=== PATIENT | male | born 2000 | race Caucasian/White ===

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

== ENCOUNTER → 2019-04-15 | Outpatient (CLI) | payer OTHER ==
--- NOTE | 2019-04-16 02:30 | MR ---
EXAMINATION TYPE: MR ankle RT wo con DATE OF EXAM: 04/15/2019 COMPARISON: None HISTORY: Rt ankle pain, swelling-Twisted ankle Standard multiplanar, multisequence MRI departmental protocol Multiplanar, multisequence images of the right ankle were acquired. FINDINGS: There is a moderate ankle joint effusion. Ankle mortise is anatomic. There is soft tissue s welling over the lateral malleolus. There is subcutaneous edema. The lateral collateral ligaments hav e increased signal. The medial and lateral flexor tendons of the ankle appear intact. Achilles tendon is intact. Plantar fascia appears normal. There is no evidence of a fracture. IMPRESSION: No fracture seen. Mild to moderate ankle joint effusion. There is evidence of tear of the lateral col lateral ligament with soft tissue swelling and edema.
== END | disposition home or self-care (01) ==
LOC: RADMRIMAIN 14:55
PROVIDERS: ATTEND Podiatrist Foot & Ankle Surgery
DX: S93.491A Sprain of other ligament of right ankle, initial encounter (principal)

== ENCOUNTER 2019-11-14 18:42 | Emergency (ER) | payer MEDICARE, OTHER ==
[2019-11-14 19:04] VITALS: BP 117/81; PULSE 114; RESP 18; TEMP 98.6
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
--- NOTE | 2019-11-14 19:38 | XR ---
EXAMINATION TYPE: XR ankle complete RT DATE OF EXAM: 11/14/2019 COMPARISON: NONE HISTORY: Pain TECHNIQUE: 3 views FINDINGS: Ankle mortise is anatomic. I see no fracture nor dislocation. Joint spaces are normal. IMPRESSION: Negative right ankle exam.
== END 2019-11-14 19:52 | disposition home or self-care (01) ==
LOC: EC 18:42
DX: S93.401A Sprain of unspecified ligament of right ankle, initial encounter (principal); F90.9 Attention-deficit hyperactivity disorder, unspecified type; Z79.899 Other long term (current) drug therapy; Z88.8 Allergy status to other drugs, medicaments and biological substances; X50.9XXA Other and unspecified overexertion or strenuous movements or postures, initial encounter
CPT/HCPCS: 99283

== ENCOUNTER 2020-01-14 12:59 | Emergency (ER) | payer MEDICARE, OTHER ==
[2020-01-14] MEDS ORDERED: diphenhydrAMINE 50 MG CAP PO STA (13:02)
--- NOTE | 2020-01-14 13:05 | ED ---
General Adult HPI - General Stated complaint: Bee Sting Time Seen by Provider: 01/14/20 13:02 Source: patient, EMS, RN notes reviewed Mode of arrival: EMS Limitations: no limitations - History of Present Illness Initial comments: This a 19-year-old male presents emergency Department chief complaint of bee sting to his left calf. This happened approximately 30-45 minutes ago. Patient has some localized pain there is a small red spot where bee sting happened. Patient has no difficulty breathing or difficulty swallowing patient has some localized pain no other complaints. Mother advised school staff to have patient evaluated because there is a family history of ALLERGIC reaction. Patient has never been stung by a bee in the past. - Related Data Home Medications Medication Instructions Recorded Confirmed lamoTRIgine [LaMICtal] 200 mg PO BID 09/11/16 04/27/18 Albuterol Inhaler (Mhu) [Ventolin 2 puff INHALATION RT-Q8H 04/27/18 04/27/18 Hfa Inhaler] Montelukast [Singulair] 10 mg PO HS 04/27/18 04/27/18 Topiramate [Topamax] 25 mg PO BID 04/27/18 04/27/18 cloZAPine [Clozaril] 150 mg PO DAILY 04/27/18 04/27/18 cloZAPine [Clozaril] 250 mg PO HS 04/27/18 04/27/18 Allergies Allergy/AdvReac Type Severity Reaction Status Date / Time amlodipine [From Norvasc] AdvReac Rapid Verified 11/14/19 19:04 Heart Rate lorazepam [From Ativan] AdvReac Increased Verified 11/14/19 19:04 Anxiety Review of Systems ROS Statement: Those systems with pertinent positive or pertinent negative responses have been documented in the HPI. ROS Other: All systems not noted in ROS Statement are negative. Past Medical History Additional Past Medical History / Comment(s): Aspergers, renal vascular HTN History of Any Multi-Drug Resistant Organisms: None Reported Past Surgical History: Cholecystectomy Past Psychological History: No Psychological Hx Reported, ADD/ADHD, Schizophrenia Past Alcohol Use History: None Reported Past Drug Use History: None Reported General Exam General appearance: alert, in no apparent distress Head exam: Present: atraumatic, normocephalic, normal inspection Eye exam: Present: normal appearance, PERRL, EOMI. Absent: scleral icterus, co njunctival injection, periorbital swelling ENT exam: Present: normal exam, normal oropharynx, mucous membranes moist Neck exam: Present: normal inspection, full ROM. Absent: tenderness, meningismus, lymphadenopathy Respiratory exam: Present: normal lung sounds bilaterally. Absent: respiratory distress, wheezes, rales, rhonchi, stridor Cardiovascular Exam: Present: regular rate, normal rhythm, normal heart sounds. Absent: systolic murmur, diastolic murmur, rubs, gallop, clicks Extremities exam: Present: other (Small red macular spot noted on the left calf) Skin exam: Present: warm, dry, intact, normal color. Absent: rash Medical Decision Making - Medical Decision Making Patient has localized minimal reaction reaction. Patient was discharged in stable condition Disposition Clinical Impression: Bee sting Disposition: HOME SELF-CARE Condition: Stable Instructions (If sedation given, give patient instructions): Insect Bite or Sting (ED) Additional Instructions: Please return to the Emergency Department if symptoms worsen or any other co ncerns. Is patient prescribed a controlled substance at d/c from ED?: No Referrals: Nigel Lockett MD [Primary Care Provider] - 1-2 days Time of Disposition: 13:05
[2020-01-14 13:06] VITALS: BP 147/93; PULSE 116; RESP 20; TEMP 98.5
== END 2020-01-14 13:19 | disposition home or self-care (01) ==
LOC: EC 12:59
DX: T63.441A Toxic effect of venom of bees, accidental (unintentional), initial encounter (principal); I10 Essential (primary) hypertension; Z79.899 Other long term (current) drug therapy; Z79.51 Long term (current) use of inhaled steroids; Z88.8 Allergy status to other drugs, medicaments and biological substances
CPT/HCPCS: 99283

== ENCOUNTER 2020-11-29 21:55 | Emergency (ER) | payer MEDICARE, OTHER ==
[2020-11-29] MEDS ORDERED: SODIUM CHLORIDE 0.9% 1,000 ML IV STA ×2 (22:33→23:05)
[2020-11-29 22:50] LABS: Basophils # (A) 0.1 k/uL (0-0.2); Basophils % (A) 1 %; Eosinophils # (A) 0.1 k/uL (0-0.7); Eosinophils % (A) 1 %; HCT 45.4 % (39.0-53.0); HGB 15.5 gm/dL (13.0-17.5); Lymphocytes # (A) 2.5 k/uL (1.0-4.8); Lymphocytes % (A) 20 %; MCH 29.9 pg (25.0-35.0); MCHC 34.1 g/dL (31.0-37.0); MCV 87.6 fL (80.0-100.0); Mean Platelet Volume 9.2; Monocytes # (A) 0.7 k/uL (0-1.0); Monocytes % (A) 5 %; Neutrophils # (A) 9.4 k/uL (1.3-7.7); Neutrophils % (A) 73 %; Platelet Count 189 k/uL (150-450); RBC 5.18 m/uL (4.30-5.90); WBC 12.9 k/uL (3.8-10.6)
[2020-11-29 23:05] LABS: ALT 18 U/L (4-49); AST 21 U/L (17-59); African American GFR (CKD) >90 (>60 ml/min/1.73 sqM); Albumin 4.3 g/dL (3.5-5.0); Alkaline Phosphatase 85 U/L (38-126); Anion Gap 10 mmol/L; Blood Urea Nitrogen 15 mg/dL (9-20); Calcium 9.6 mg/dL (8.4-10.2); Carbon Dioxide 24 mmol/L (22-30); Chloride 106 mmol/L (98-107); Creatine Kinase 83 U/L (55-170); Glucose 145 mg/dL (74-99); Lipase 26 U/L (23-300); Non-African American GFR(CKD) >90 (>60 ml/min/1.73 sqM); Potassium 3.6 mmol/L (3.5-5.1); Sodium 140 mmol/L (137-145); Total Bilirubin 0.2 mg/dL (0.2-1.3)
[2020-11-29] MEDS ORDERED: KETOROLAC 15 MG/ML 1 ML VIAL IVP STA (23:05)
[2020-11-29] MEDS ORDERED: ONDANSETRON 4 MG/2 ML VIAL IVP STA (23:05)
[2020-11-29] MEDS ORDERED: MAG HYDROX/AL HYDROX/SIMETH 30 ML, HYOSCYAMINE ELIXIR 10 ML PO STA ×2 (23:05)
--- NOTE | 2020-11-29 23:30 | ED ---
Chest Pain HPI - General Chief Complaint: Chest Pain Stated Complaint: Chest pain Time Seen by Provider: 11/29/20 22:32 Source: patient, RN notes reviewed, old records reviewed Mode of arrival: wheelchair Limitations: no limitations - History of Present Illness Initial Comments: This is a 20-year-old male DF for evaluation patient Dese for evaluation regards to chest pain anterior chest wall pain. Tenderness to palpation in his chest arm and abdomen. Patient is a mildly poor story and presenting with family for evaluation regards to this chest pain. Second car with history of high blood pressure. Otherwise no recent change in medications no acute trauma or fevers. She was at the [place] today some maybe a little dehydrated and was riding a ride that did spinning around in circles, uses a variety continue to ride it over and over again. MD Complaint: chest pain -: hour(s) Onset: during rest Pain Location: substernal Pain Radiation: none Severity: mild Severity scale (1-10): 2 Quality: aching, sharp Consistency: intermittent Improves With: nothing Worsens With: inspiration Context: trauma/injury Anginal Symptoms: diaphoresis Treatments Prior to Arrival: none - Related Data Home Medications Medication Instructions Recorded Confirmed lamoTRIgine [LaMICtal] 200 mg PO BID 09/11/16 04/27/18 Albuterol Inhaler (Mhu) [Ventolin 2 puff INHALATION RT-Q8H 04/27/18 04/27/18 Hfa Inhaler] Montelukast [Singulair] 10 mg PO HS 04/27/18 04/27/18 Topiramate [Topamax] 25 mg PO BID 04/27/18 04/27/18 cloZAPine [Clozaril] 150 mg PO DAILY 04/27/18 04/27/18 cloZAPine [Clozaril] 250 mg PO HS 04/27/18 04/27/18 Allergies Allergy/AdvReac Type Severity Reaction Status Date / Time amlodipine [From Norvasc] AdvReac Rapid Verified 11/29/20 22:10 Heart Rate lorazepam [From Ativan] AdvReac Increased Verified 11/29/20 22:10 Anxiety Review of Systems ROS Statement: Those systems with pertinent positive or pertinent negative responses have been documented in the HPI. ROS Other: All systems not noted in ROS Statement are negative. EKG Findings - EKG Comments: EKG Findings:: EKG shows sinus tachycardia 122. TX 150 QRS 78 QTc 444 Past Medical History Additional Past Medical History / Comment(s): Aspergers, renal vascular HTN History of Any Multi-Drug Resistant Organisms: None Reported Past Surgical History: Cholecystectomy Past Psychological History: No Psychological Hx Reported, ADD/ADHD, Schizophrenia Smoking Status: Never smoker Past Alcohol Use History: None Reported Past Drug Use History: None Reported General Exam Limitations: no limitations General appearance: alert, in no apparent distress, obese Head exam: Present: atraumatic, normocephalic, normal inspection Eye exam: Present: normal appearance, PERRL, EOMI. Absent: scleral icterus, conjunctival injection, periorbital swelling ENT exam: Present: normal exam, mucous membranes moist Neck exam: Present: normal inspection. Absent: tenderness, meningismus, lymphadenopathy Respiratory exam: Present: normal lung sounds bilaterally. Absent: respiratory distress, wheezes, rales, rhonchi, stridor Cardiovascular Exam: Present: normal rhythm, tachycardia, normal heart sounds. Absent: systolic murmur, diastolic murmur, rubs, gallop, clicks GI/Abdominal exam: Present: soft, normal bowel sounds. Absent: distended, tenderness, guarding, rebound, rigid Extremities exam: Present: normal inspection, full ROM, normal capillary refill. Absent: tenderness, pedal edema, joint swelling, calf tenderness Back exam: Present: normal inspection Neurological exam: Present: alert, oriented X3, CN II-XII intact Psychiatric exam: Present: normal affect, normal mood Skin exam: Present: warm, dry, intact, normal color. Absent: rash Course Vital Signs 11/29/20 11/30/20 22:07 00:01 Temperature 99.2 F Pulse Rate 124 H 108 H Respiratory 18 20 Rate Blood Pressure 99/42 128/76 O2 Sat by Pulse 98 97 Oximetry - Reevaluation(s) Reevaluation #1: 11/30/20 00:06 Medical records reviewed Reevaluation #2: 11/30/20 00:06 Patient has adequate current pain control Reevaluation #3: 11/30/20 00:06 Patient family informed results questions answered Reevaluation #4: 11/30/20 00:07 Studies CTA negative for acute disease Chest Pain MDM - MDM 20 male with atypical chest pain likely chest wall strain in nature. Patient has negative testing here in the emergency room and can be discharged home Disposition Clinical Impression: Atypical chest pain, Chest pain Disposition: HOME SELF-CARE Condition: Good Instructions (If sedation given, give patient instructions): Costochondritis (ED) Is patient prescribed a controlled substance at d/c from ED?: No Referrals: Zeferino Lamb MD [Primary Care Provider] - 1-2 days
--- NOTE | 2020-11-30 00:03 | CT ---
EXAMINATION TYPE: CT angio chest DATE OF EXAM: 11/29/2020 COMPARISON: None HISTORY: Chest pain CT DLP: 1007 mGycm Automated exposure control for dose reduction was used. CONTRAST: Performed with IV Contrast, patient injected with 80 mL of Isovue 370. There are 3-D post processed images. There is some mild increased interstitial density at the posterior lung bases. There is no pulmonary consolidation. There is no evidence of a pulmonary mass. There is no mediastinal adenopathy. Thoracic aorta appears normal. There is no aneurysm or dissection . There are no hilar masses. There is suboptimal contrast density in the pulmonary arteries. I see no filling defect. The thoracic spine is intact. There is no compression fracture. Sternum is intact spleen is large and measures 16 cm. Liver appears large. IMPRESSION: No evidence of pulmonary embolism. Hepatosplenomegaly.
[2020-11-30 00:08] LABS: D-Dimer 0.18 mg/L FEU (<0.60); Partial Thromboplastin Time 25.2 sec (22.0-30.0); Prothrombin Time 10.3 sec (9.0-12.0)
[2020-11-30 00:46] VITALS: BP 126/62; PULSE 101; RESP 18; TEMP 98.5
== END 2020-11-30 00:51 | disposition home or self-care (01) ==
LOC: EC 21:55 → SUPCPDRO 21:55 → EC 11-30 00:51
DX: R07.89 Other chest pain (principal); I10 Essential (primary) hypertension; E66.9 Obesity, unspecified; F20.9 Schizophrenia, unspecified; Z79.51 Long term (current) use of inhaled steroids; Z79.899 Other long term (current) drug therapy; Z88.8 Allergy status to other drugs, medicaments and biological substances; Z68.41 Body mass index [BMI] 40.0-44.9, adult
CPT/HCPCS: 36415; 93005; 85379; 83880; 80053; 82550; 83690; 83735; 84484; 85025; 85610; 85730; 71275; 96374; 96375; 99285; J2405; J1885; Q9967

== ENCOUNTER 2021-01-06 17:15 | Emergency (ER) | payer MEDICARE, OTHER ==
[2021-01-06 17:34] VITALS: TEMP 98
[2021-01-06 18:17] LABS: Basophils # (A) 0.1 k/uL (0-0.2); Basophils % (A) 1 %; Eosinophils % (A) 0 %; HCT 44.8 % (39.0-53.0); HGB 14.9 gm/dL (13.0-17.5); Lymphocytes # (A) 2.2 k/uL (1.0-4.8); Lymphocytes % (A) 25 %; MCH 29.4 pg (25.0-35.0); MCHC 33.2 g/dL (31.0-37.0); MCV 88.7 fL (80.0-100.0); Mean Platelet Volume 9.6; Monocytes # (A) 0.3 k/uL (0-1.0); Monocytes % (A) 3 %; Neutrophils # (A) 6.2 k/uL (1.3-7.7); Neutrophils % (A) 70 %; Platelet Count 172 k/uL (150-450); RBC 5.06 m/uL (4.30-5.90); RDW 13.8 % (11.5-15.5); WBC 8.8 k/uL (3.8-10.6)
[2021-01-06 18:27] LABS: ALT 19 U/L (4-49); AST 25 U/L (17-59); African American GFR (CKD) >90 (>60 ml/min/1.73 sqM); Albumin 3.9 g/dL (3.5-5.0); Alkaline Phosphatase 76 U/L (38-126); Amylase <30 U/L (30-110); Anion Gap 12 mmol/L; Blood Urea Nitrogen 15 mg/dL (9-20); Calcium 9.6 mg/dL (8.4-10.2); Carbon Dioxide 20 mmol/L (22-30); Chloride 106 mmol/L (98-107); Glucose 195 mg/dL (74-99); Lipase 27 U/L (23-300); Non-African American GFR(CKD) >90 (>60 ml/min/1.73 sqM); Potassium 3.4 mmol/L (3.5-5.1); Sodium 138 mmol/L (137-145); Total Bilirubin 0.2 mg/dL (0.2-1.3); Total Protein 6.4 g/dL (6.3-8.2)
--- NOTE | 2021-01-06 18:55 | XR ---
EXAMINATION TYPE: XR KUB DATE OF EXAM: 01/06/2021 COMPARISON: NONE HISTORY: 20 years Male. STUDY INDICATION GIVEN: abdominal pain . TECHNIQUE: Radiographs of the abdomen FINDINGS AND IMPRESSION: Moderate to large amount of stool seen in the colon. The bowel gas pattern is nonobstructive. No abno rmal calcifications or evidence of organomegaly. No acute osseous abnormality. Bibasilar subsegmental atelectasis, minimal.
[2021-01-06 18:57] LABS: Appearance,Urine Clear (Clear); Bilirubin,Urine Negative (Negative); Blood,Urine Negative (Negative); Color,Urine Yellow; Glucose,Urine (UA) Negative (Negative); Ketones,Urine Negative (Negative); Leukocyte Esterase,Urine Negative (Negative); Nitrite,Urine Negative (Negative); Protein,Urine Trace (Negative); Specific Gravity,Urine 1.021 (1.001-1.035); Urobilinogen,Urine <2.0 mg/dL (<2.0)
[2021-01-06] MEDS ORDERED: KETOROLAC 15 MG/ML 1 ML VIAL IVP STA (19:10)
[2021-01-06 20:11] VITALS: RESP 16
--- NOTE | 2021-01-06 20:27 | CT ---
EXAMINATION TYPE: CT abdomen pelvis w con DATE OF EXAM: 01/06/2021 COMPARISON: NONE HISTORY: 20-year-old male right-sided abdominal pain side abdomen pain TECHNIQUE: Contiguous axial scanning of the abdomen and pelvis following administration of 100 ml Iso peter 300 IV contrast. Delayed images through the kidneys and coronal/sagittal reconstructions perform ed. CT DLP: 2589.2 mGycm Automated exposure control for dose reduction was used. FINDINGS: Heart normal size without pericardial effusion. Lung bases clear without pleural effusion. Liver mildly enlarged measuring 19.6 cm. No focal liver lesion or biliary ductal dilatation. Portal v enous system is patent. Gallbladder, adrenal glands, kidneys, and pancreas within normal limits. Spleen enlarged at 15.7 cm. No dilated small bowel, free fluid, or free air. A few scattered nonenlarged and borderline sized mes enteric lymph nodes measuring up to 8 mm, for example, coronal image 51. Probably reactive/post infla mmatory. Normal appendix. Mild stool burden. No pericolonic inflammatory change. Mild/moderate circumferential bladder wall thickening may in part relate to nondistention. No abnorma l fluid collection in the pelvis or pelvic lymphadenopathy. Bones: No osseous destructive process. IMPRESSION: 1. MILD HEPATOSPLENOMEGALY (LIVER 19.6 CM AND SPLEEN 15.7 CM). 2. NORMAL APPENDIX. 3. SPHI-HZ-EIRODNGH CIRCUMFERENTIAL BLADDER WALL THICKENING. CORRELATE TO EXCLUDE CYSTITIS.
--- NOTE | 2021-01-06 20:38 | ED ---
Abdominal Pain HPI - General Chief Complaint: Abdominal Pain Stated Complaint: Abdominal Pain Time Seen by Provider: 01/06/21 18:17 Source: patient, family Mode of arrival: wheelchair Limitations: no limitations - History of Present Illness Initial Comments: 20-year-old male presents emergency Department with reported right-sided flank pain. Pain started a couple days ago and has been progressively getting worse. Denies any provocative factors. No nausea or vomiting. No fevers or chills. Denies any changes in his bowel or bladder habits. Patient did have a bowel movement this morning. No history of similar pain in the past. No history of k idney stones. No concern for sexually transmitted infections. No testicular pain. No other alleviating, precipitating or modifying factors - Related Data Home Medications Medication Instructions Recorded Confirmed lamoTRIgine [LaMICtal] 200 mg PO BID 09/11/16 04/27/18 Albuterol Inhaler (Mhu) [Ventolin 2 puff INHALATION RT-Q8H 04/27/18 04/27/18 Hfa Inhaler] Montelukast [Singulair] 10 mg PO HS 04/27/18 04/27/18 Topiramate [Topamax] 25 mg PO BID 04/27/18 04/27/18 cloZAPine [Clozaril] 150 mg PO DAILY 04/27/18 04/27/18 cloZAPine [Clozaril] 250 mg PO HS 04/27/18 04/27/18 Previous Rx's Medication Instructions Recorded Polyethylene Glycol 3350 [Miralax] 17 gm PO DAILY #527 gm 01/06/21 Allergies Allergy/AdvReac Type Severity Reaction Status Date / Time amlodipine [From Norvasc] AdvReac Rapid Verified 01/06/21 17:32 Heart Rate lorazepam [From Ativan] AdvReac Increased Verified 01/06/21 17:32 Anxiety Review of Systems ROS Statement: Those systems with pertinent positive or pertinent negative responses have been documented in the HPI. ROS Other: All systems not noted in ROS Statement are negative. Past Medical History Additional Past Medical History / Comment(s): Aspergers, renal vascular HTN History of Any Multi-Drug Resistant Organisms: None Reported Past Surgical History: Cholecystectomy Past Psychological History: No Psychological Hx Reported, ADD/ADHD, Schizoph torsten Smoking Status: Never smoker Past Alcohol Use History: None Reported Past Drug Use History: None Reported General Exam Limitations: no limitations General appearance: alert, in no apparent distress Head exam: Present: atraumatic, normocephalic, normal inspection Eye exam: Present: normal appearance, PERRL, EOMI. Absent: scleral icterus, conjunctival injection, periorbital swelling ENT exam: Present: normal exam, mucous membranes moist Neck exam: Present: normal inspection. Absent: tenderness, meningismus, lymphadenopathy Respiratory exam: Present: normal lung sounds bilaterally. Absent: respiratory distress, wheezes, rales, rhonchi, stridor Cardiovascular Exam: Present: regular rate, normal rhythm, normal heart sounds. Absent: systolic murmur, diastolic murmur, rubs, gallop, clicks GI/Abdominal exam: Present: soft, normal bowel sounds. Absent: distended, tenderness, guarding, rebound, rigid Extremities exam: Present: normal inspection, full ROM, normal capillary refill. Absent: tenderness, pedal edema, joint swelling, calf tenderness Back exam: Present: CVA tenderness (R) Neurological exam: Present: alert, oriented X3, CN II-XII intact Psychiatric exam: Present: normal affect, normal mood Skin exam: Present: warm, dry, intact, normal color. Absent: rash Course Vital Signs 01/06/21 01/06/21 01/06/21 17:29 19:33 20:50 Temperature 98.0 F Pulse Rate 105 H 98 96 Respiratory 19 16 16 Rate Blood Pressure 123/68 146/76 148/89 O2 Sat by Pulse 97 97 98 Oximetry Medical Decision Making - Medical Decision Making Upon arrival the patient was placed into room 4. A thorough history and physical exam was performed. IV is established. Laboratory studies were conducted. He received 50 mg of Toradol. X-ray was performed. Upon review of the laboratory studies glucose is 195. Mother is informed of this high reading and recommend that she follow up with her primary care doctor for a hemoglobin A1c. X-ray demonstrates a moderate to large amount of stool. As the patient is in significant pain we did perform a CT of abdomen and pelvis which fails to demonstrate any acute process at this time. Patient is reevaluated and feels comfortable after the pain medicine. Patient will be discharged home. I did discuss the diagnosis, differential and treatment options. Patient will be given a prescription for MiraLAX. Follow up with his primary care doctor in 2-4 days. Return to the emergency room for any new or worsening symptoms. Patient is discharged home in stable condition - Lab Data Result diagrams: 01/06/21 18:06 01/06/21 18:06 Lab Results 01/06/21 01/06/21 01/06/21 Range/Units 18:06 18:06 18:06 WBC 8.8 (3.8-10.6) k/uL RBC 5.06 (4.30-5.90) m/uL Hgb 14.9 (13.0-17.5) gm/dL Hct 44.8 (39.0-53.0) % MCV 88.7 (80.0-100.0) fL MCH 29.4 (25.0-35.0) pg MCHC 33.2 (31.0-37.0) g/dL RDW 13.8 (11.5-15.5) % Plt Count 172 (150-450) k/uL MPV 9.6 Neutrophils % 70 % Lymphocytes % 25 % Monocytes % 3 % Eosinophils % 0 % Basophils % 1 % Neutrophils # 6.2 (1.3-7.7) k/uL Lymphocytes # 2.2 (1.0-4.8) k/uL Monocytes # 0.3 (0-1.0) k/uL Eosinophils # 0.0 (0-0.7) k/uL Basophils # 0.1 (0-0.2) k/uL Sodium 138 (137-145) mmol/L Potassium 3.4 L (3.5-5.1) mmol/L Chloride 106 (98-107) mmol/L Carbon Dioxide 20 L (22-30) mmol/L Anion Gap 12 mmol/L BUN 15 (9-20) mg/dL Creatinine 0.96 (0.66-1.25) mg/dL Est GFR (CKD-EPI)AfAm >90 (>60 ml/min/1.73 sqM) Est GFR (CKD-EPI)NonAf >90 (>60 ml/min/1.73 sqM) Glucose 195 H (74-99) mg/dL Plasma Lactic Acid Dane 1.9 (0.7-2.0) mmol/L Calcium 9.6 (8.4-10.2) mg/dL Total Bilirubin 0.2 (0.2-1.3) mg/dL AST 25 (17-59) U/L ALT 19 (4-49) U/L Alkaline Phosphatase 76 (38-126) U/L Total Protein 6.4 (6.3-8.2) g/dL Albumin 3.9 (3.5-5.0) g/dL Amylase <30 L (30-110) U/L Lipase 27 (23-300) U/L Urine Color Urine Appearance (Clear) Urine pH (5.0-8.0) Ur Specific [place] (1.001-1.035) Urine Protein (Negative) Urine Glucose (UA) (Negative) Urine Ketones (Negative) Urine Blood (Negative) Urine Nitrite (Negative) Urine Bilirubin (Negative) Urine Urobilinogen (<2.0) mg/dL Ur Leukocyte Esterase (Negative) 01/06/21 Range/Units 18:34 WBC (3.8-10.6) k/uL RBC (4.30-5.90) m/uL Hgb (13.0-17.5) gm/dL Hct (39.0-53.0) % MCV (80.0-100.0) fL MCH (25.0-35.0) pg MCHC (31.0-37.0) g/dL RDW (11.5-15.5) % Plt Count (150-450) k/uL MPV Neutrophils % % Lymphocytes % % Monocytes % % Eosinophils % % Basophils % % Neutrophils # (1.3-7.7) k/uL Lymphocytes # (1.0-4.8) k/uL Monocytes # (0-1.0) k/uL Eosinophils # (0-0.7) k/uL Basophils # (0-0.2) k/uL Sodium (137-145) mmol/L Potassium (3.5-5.1) mmol/L Chloride (98-107) mmol/L Carbon Dioxide (22-30) mmol/L Anion Gap mmol/L BUN (9-20) mg/dL Creatinine (0.66-1.25) mg/dL Est GFR (CKD-EPI)AfAm (>60 ml/min/1.73 sqM) Est GFR (CKD-EPI)NonAf (>60 ml/min/1.73 sqM) Glucose (74-99) mg/dL Plasma Lactic Acid Dane (0.7-2.0) mmol/L Calcium (8.4-10.2) mg/dL Total Bilirubin (0.2-1.3) mg/dL AST (17-59) U/L ALT (4-49) U/L Alkaline Phosphatase (38-126) U/L Total Protein (6.3-8.2) g/dL Albumin (3.5-5.0) g/dL Amylase (30-110) U/L Lipase (23-300) U/L Urine Color Yellow Urine Appearance Clear (Clear) Urine pH 5.0 (5.0-8.0) Ur Specific [place] 1.021 (1.001-1.035) Urine Protein Trace H (Negative) Urine Glucose (UA) Negative (Negative) Urine Ketones Negative (Negative) Urine Blood Negative (Negative) Urine Nitrite Negative (Negative) Urine Bilirubin Negative (Negative) Urine Urobilinogen <2.0 (<2.0) mg/dL Ur Leukocyte Esterase Negative (Negative) Disposition Clinical Impression: Abdominal pain, Constipation, Hyperglycemia Disposition: HOME SELF-CARE Condition: Stable Instructions (If sedation given, give patient instructions): Abdominal Pain (ED) Additional Instructions: Please take the Miralax daily until you have smooth bowel movements. Follow up with your doctor in regards to your elevated blood sugar (195 today). They may want to do a hemoglobin a1c. Return to the ED for any new or worsening symptoms. Prescriptions: Polyethylene Glycol 3350 [Miralax] 17 gm PO DAILY #527 gm Is patient prescribed a controlled substance at d/c from ED?: No Referrals: Checo Richards MD [Primary Care Provider] - 1-2 days Time of Disposition: 20:37
[2021-01-06 21:08] VITALS: BP 148/89; PULSE 96
== END 2021-01-06 20:51 | disposition home or self-care (01) ==
LOC: EC 17:15
DX: R10.9 Unspecified abdominal pain (principal); F90.9 Attention-deficit hyperactivity disorder, unspecified type; F20.9 Schizophrenia, unspecified; Z90.49 Acquired absence of other specified parts of digestive tract
CPT/HCPCS: 99284; 96374; 36415; 80053; 82150; 83605; 83690; 85025; 81003; 74018; 74177; J1885; Q9967

== ENCOUNTER 2022-08-08 18:59 | Emergency (ER) | payer MEDICARE, OTHER ==
[2022-08-08 19:05] VITALS: RESP 18; TEMP 98.7
[2022-08-08] MEDS ORDERED: SODIUM CHLORIDE 0.9% 1,000 ML IV STA (19:16)
[2022-08-08] MEDS ORDERED: KETOROLAC 15 MG/ML 1 ML VIAL IVP STA (19:16)
--- NOTE | 2022-08-08 19:35 | ED ---
Abdominal Pain HPI - General Chief Complaint: Abdominal Pain Stated Complaint: Abd pain Time Seen by Provider: 08/08/22 19:01 Source: patient, family, RN notes reviewed Mode of arrival: ambulatory - History of Present Illness Initial Comments: This is a 21-year-old male who presents to the emergency department for right- sided mid to upper abdominal pain. Patient does live in a [place] [facility], however his mother presents with him for evaluation. States that Sunday he started to c omplain of right-sided abdominal pain, and yesterday it became so severe, that he was sent home from school. She states that he does not often complain of pain. He has also had diarrhea over the weekend, but he was given MiraLAX while experiencing the diarrhea. They do note that he has been complaining of similar pain on and off for the last couple of months, however it became the most severe yesterday. His mother took him to [facility] last night. He had a bedside ultrasound, and the physician thought that he saw his gallbladder, however his mother was told that it was removed when he was an infant. His mother adopted him when he was approximately 1 years old, and does not have the entire history. They then proceeded with a regular right upper quadrant ultrasound, and they were told that it was normal. However, they were not told whether or not he has a gallbladder. Lab work was performed as well, which the family was told was normal. Patient denies any nausea or vomiting. Denies any fevers, chills, sore throat, cough, dyspnea, chest pain, palpitati ons, nausea, vomiting, or headaches. MD Complaint: abdominal pain Radiation: RUQ - Related Data Home Medications Medication Instructions Recorded Confirmed lamoTRIgine [LaMICtal] 200 mg PO BID 09/11/16 04/27/18 Albuterol Inhaler [Ventolin Hfa 2 puff INHALATION RT-Q8H 04/27/18 04/27/18 Inhaler] Montelukast [Singulair] 10 mg PO HS 04/27/18 04/27/18 Topiramate [Topamax] 25 mg PO BID 04/27/18 04/27/18 cloZAPine [Clozaril] 150 mg PO DAILY 04/27/18 04/27/18 cloZAPine [Clozaril] 250 mg PO HS 04/27/18 04/27/18 Previous Rx's Medication Instructions Recorded polyethylene glycoL 3350 [Miralax] 17 gm PO DAILY #527 gm 01/06/21 Simethicone [Gas-X] 125 mg PO QID PRN #20 capsule 08/08/22 Allergies Allergy/AdvReac Type Severity Reaction Status Date / Time amlodipine [From Norvasc] AdvReac Rapid Verified 08/08/22 19:05 Heart Rate lorazepam [From Ativan] AdvReac Increased Verified 08/08/22 19:05 Anxiety Review of Systems ROS Statement: Those systems with pertinent positive or pertinent negative responses have been documented in the HPI. ROS Other: All systems not noted in ROS Statement are negative. Past Medical History Additional Past Medical History / Comment(s): Aspergers, renal vascular HTN History of Any Multi-Drug Resistant Organisms: None Reported Past Surgical History: Cholecystectomy Past Psychological History: No Psychological Hx Reported, ADD/ADHD, Schizophrenia Smoking Status: Never smoker Past Alcohol Use History: None Reported Past Drug Use History: None Reported General Exam General appearance: alert, in no apparent distress Head exam: Present: atraumatic, normocephalic, normal inspection Respiratory exam: Present: normal lung sounds bilaterally. Absent: respiratory distress, wheezes, rales, rhonchi, stridor Cardiovascular Exam: Present: regular rate, normal rhythm, normal heart sounds. Absent: systolic murmur, diastolic murmur, rubs, gallop, clicks GI/Abdominal exam: Present: soft, tenderness (RUQ and right mid abdominal tenderness), normal bowel sounds. Absent: distended Neurological exam: Present: alert, oriented X3, CN II-XII intact Psychiatric exam: Present: normal affect, normal mood Skin exam: Present: warm, dry, intact, normal color. Absent: rash Course Vital Signs 08/08/22 08/08/22 19:00 22:00 Temperature 98.7 F Pulse Rate 93 84 Respiratory 18 18 Rate Blood Pressure 105/62 102/81 O2 Sat by Pulse 97 99 Oximetry Medical Decision Making - Medical Decision Making This is a 21-year-old male who presents to the emergency department for abdominal pain. Was pt. sent in by a medical professional or institution? @ -No Did you speak to anyone other than the patient for history? @ -His mother Did you review nursing and triage notes? @ -Yes, and I agree, it is accurate with regards to the patient's symptoms. Were old charts reviewed? @ -No Differential Diagnosis? @ -Differential Abdominal Pain Men: Appendicitis, diverticulosis, ischemic bowel, pancreatitis, hepatitis, UTI, gastroenteritis, AAA, incarcerated hernia, bowel obstruction, constipation, inflammatory bowel, hepatitis, peptic ulcer disease, splenic infarction, perforated viscus, testicular torsion, this is not meant to be an all-inclusive list CT interpreted by me (1pt min.)? @ -Computed tomography scan of the abdomen and pelvis obtained. My interpreta tion identifies no evidence of bowel thickening or free air. There is a large amount of gas throughout his colon. What testing was considered but not performed? (CT, X-rays, U/S, labs)? Why? @ -None What meds were considered but not given? Why? @ -None Did you discuss the management of the patient with other professionals? @ -No Did you reconcile home meds? @ -No Was smoking cessation discussed for >3mins.? @ -No Was critical care preformed (if so, how long)? @ -No Were there social determinants of health that impacted care today? How? (Homelessness, low income, unemployed, alcoholism, drug addiction, transportation, low edu. Level, literacy, decrease access to med. care, senior living, rehab)? @ -No Was there de-escalation of care discussed even if they declined? (Discuss DNR or withdrawal of care, Hospice)? @ -No What co-morbidities impacted this encounter? (DM, HTN, Smoking, COPD, CAD, Cancer, CVA, Hep., AIDS, mental health diagnosis, sleep apnea, morbid obesity)? @ -Morbid obesity, autism Was patient admitted / discharged? @ -Discharged. Lab work obtained and found to be nonactionable. Patient given IV fluids and Toradol which was mildly beneficial. We then tried Bentyl, which offered no relief. Computed tomography scan of the abdomen and pelvis reveals significant gas buildup throughout the colon. GI cocktail and simethicone administered. Afterwards the patient had a bowel movement, passed a large amount of gas, and states that he felt much better. Discussed with the patient and his mother that cause of his pain was likely related to gas buildup. Rx for simethicone provided with dosing instructions reviewed. Discussed that he can alternate with ibuprofen and Tylenol as needed for pain relief. Information for GI follow-up provided. Advised he contact them if symptoms do not improve for further evaluation and management. Also advised to increase his fluid and fiber intake and consider taking a probiotic. Undiagnosed new problem with uncertain prognosis? @ -None Drug Therapy requiring intensive monitoring for toxicity (Heparin, Nitro, Insulin, Cardizem)? @ -None Were any procedures done? @ -None Diagnosis/symptom? @ -Abdominal pain, gas buildup Acute, or Chronic, or Acute on Chronic? @ -Acute Uncomplicated (without systemic symptoms) or Complicated (systemic symptoms)? @ -Uncomplicated Side effects of treatment? @ -None Exacerbation, Progression, or Severe Exacerbation] @ -Not applicable Poses a threat to life or bodily function? @ -No Return precautions reviewed in depth, the patient is instructed to return to the emergency department with any new, worsening, or concerning symptoms. Patient verbalized understanding. This case was discussed in detail with the attending ED physician, Dr. Mariee. Presentation, findings, and treatment plan discussed in detail as well. - Lab Data Result diagrams: 08/08/22 19:31 08/08/22 19:31 Lab Results 08/08/22 08/08/22 08/08/22 Range/Units 19:31 19:31 19:31 WBC 9.1 (3.8-10.6) k/uL RBC 5.04 (4.30-5.90) m/uL Hgb 14.9 (13.0-17.5) gm/dL Hct 43.9 (39.0-53.0) % MCV 87.2 (80.0-100.0) fL MCH 29.5 (25.0-35.0) pg MCHC 33.8 (31.0-37.0) g/dL RDW 13.1 (11.5-15.5) % Plt Count 176 (150-450) k/uL MPV 9.2 Neutrophils % 64 % Lymphocytes % 27 % Monocytes % 6 % Eosinophils % 1 % Basophils % 1 % Neutrophils # 5.8 (1.3-7.7) k/uL Lymphocytes # 2.5 (1.0-4.8) k/uL Monocytes # 0.5 (0-1.0) k/uL Eosinophils # 0.1 (0-0.7) k/uL Basophils # 0.1 (0-0.2) k/uL Sodium 135 L (137-145) mmol/L Potassium 4.1 (3.5-5.1) mmol/L Chloride 103 (98-107) mmol/L Carbon Dioxide 24 (22-30) mmol/L Anion Gap 8 mmol/L BUN 15 (9-20) mg/dL Creatinine 1.07 (0.66-1.25) mg/dL Est GFR (CKD-EPI)AfAm >90 (>60 ml/min/1.73 sqM) Est GFR (CKD-EPI)NonAf >90 (>60 ml/min/1.73 sqM) Glucose 81 (74-99) mg/dL Plasma Lactic Acid Dane 0.6 L (0.7-2.0) mmol/L Calcium 8.9 (8.4-10.2) mg/dL Total Bilirubin 0.3 (0.2-1.3) mg/dL AST 18 (17-59) U/L ALT 18 (4-49) U/L Alkaline Phosphatase 74 (38-126) U/L C-Reactive Protein 0.6 (<1.0) mg/dL Total Protein 6.8 (6.3-8.2) g/dL Albumin 4.0 (3.5-5.0) g/dL Amylase 38 (30-110) U/L Lipase 39 (23-300) U/L Urine Color Urine Appearance (Clear) Urine pH (5.0-8.0) Ur Specific [place] (1.001-1.035) Urine Protein (Negative) Urine Glucose (UA) (Negative) Urine Ketones (Negative) Urine Blood (Negative) Urine Nitrite (Negative) Urine Bilirubin (Negative) Urine Urobilinogen (<2.0) mg/dL Ur Leukocyte Esterase (Negative) 08/08/22 Range/Units 19:53 WBC (3.8-10.6) k/uL RBC (4.30-5.90) m/uL Hgb (13.0-17.5) gm/dL Hct (39.0-53.0) % MCV (80.0-100.0) fL MCH (25.0-35.0) pg MCHC (31.0-37.0) g/dL RDW (11.5-15.5) % Plt Count (150-450) k/uL MPV Neutrophils % % Lymphocytes % % Monocytes % % Eosinophils % % Basophils % % Neutrophils # (1.3-7.7) k/uL Lymphocytes # (1.0-4.8) k/uL Monocytes # (0-1.0) k/uL Eosinophils # (0-0.7) k/uL Basophils # (0-0.2) k/uL Sodium (137-145) mmol/L Potassium (3.5-5.1) mmol/L Chloride (98-107) mmol/L Carbon Dioxide (22-30) mmol/L Anion Gap mmol/L BUN (9-20) mg/dL Creatinine (0.66-1.25) mg/dL Est GFR (CKD-EPI)AfAm (>60 ml/min/1.73 sqM) Est GFR (CKD-EPI)NonAf (>60 ml/min/1.73 sqM) Glucose (74-99) mg/dL Plasma Lactic Acid Dane (0.7-2.0) mmol/L Calcium (8.4-10.2) mg/dL Total Bilirubin (0.2-1.3) mg/dL AST (17-59) U/L ALT (4-49) U/L Alkaline Phosphatase (38-126) U/L C-Reactive Protein (<1.0) mg/dL Total Protein (6.3-8.2) g/dL Albumin (3.5-5.0) g/dL Amylase (30-110) U/L Lipase (23-300) U/L Urine Color Colorless Urine Appearance Clear (Clear) Urine pH 5.0 (5.0-8.0) Ur Specific [place] 1.003 (1.001-1.035) Urine Protein Negative (Negative) Urine Glucose (UA) Negative (Negative) Urine Ketones Negative (Negative) Urine Blood Negative (Negative) Urine Nitrite Negative (Negative) Urine Bilirubin Negative (Negative) Urine Urobilinogen <2.0 (<2.0) mg/dL Ur Leukocyte Esterase Negative (Negative) - Radiology Data Radiology results: report reviewed, image reviewed Disposition Clinical Impression: Abdominal pain, Gas bloat syndrome Disposition: HOME SELF-CARE Instructions (If sedation given, give patient instructions): Simethicone (By mouth), Abdominal Pain (ED) Additional Instructions: Return to the emergency department with any new, worsening, or concerning symptoms. Take the simethicone 4 times daily as needed for pain/bloating. Follow up with your primary care provider in 1-2 days. Prescriptions: Simethicone [Gas-X] 125 mg PO QID PRN #20 capsule PRN Reason: Bloating Is patient prescribed a controlled substance at d/c from ED?: No Referrals: Checo Richards MD [Primary Care Provider] - 1-2 days Fela Mckeon MD [STAFF PHYSICIAN] - 1-2 days
[2022-08-08 19:43] LABS: Basophils # (A) 0.1 k/uL (0-0.2); Basophils % (A) 1 %; Eosinophils # (A) 0.1 k/uL (0-0.7); Eosinophils % (A) 1 %; HCT 43.9 % (39.0-53.0); HGB 14.9 gm/dL (13.0-17.5); Lymphocytes # (A) 2.5 k/uL (1.0-4.8); Lymphocytes % (A) 27 %; MCH 29.5 pg (25.0-35.0); MCHC 33.8 g/dL (31.0-37.0); MCV 87.2 fL (80.0-100.0); Mean Platelet Volume 9.2; Monocytes # (A) 0.5 k/uL (0-1.0); Monocytes % (A) 6 %; Neutrophils # (A) 5.8 k/uL (1.3-7.7); Neutrophils % (A) 64 %; Platelet Count 176 k/uL (150-450); RBC 5.04 m/uL (4.30-5.90); RDW 13.1 % (11.5-15.5); WBC 9.1 k/uL (3.8-10.6)
[2022-08-08 20:00] LABS: Appearance,Urine Clear (Clear); Bilirubin,Urine Negative (Negative); Blood,Urine Negative (Negative); Color,Urine Colorless; Glucose,Urine (UA) Negative (Negative); Ketones,Urine Negative (Negative); Leukocyte Esterase,Urine Negative (Negative); Nitrite,Urine Negative (Negative); Protein,Urine Negative (Negative); Specific Gravity,Urine 1.003 (1.001-1.035); Urobilinogen,Urine <2.0 mg/dL (<2.0)
[2022-08-08 20:01] LABS: ALT 18 U/L (4-49); AST 18 U/L (17-59); African American GFR (CKD) >90 (>60 ml/min/1.73 sqM); Alkaline Phosphatase 74 U/L (38-126); Amylase 38 U/L (30-110); Anion Gap 8 mmol/L; Blood Urea Nitrogen 15 mg/dL (9-20); Calcium 8.9 mg/dL (8.4-10.2); Carbon Dioxide 24 mmol/L (22-30); Chloride 103 mmol/L (98-107); Glucose 81 mg/dL (74-99); Lipase 39 U/L (23-300); Non-African American GFR(CKD) >90 (>60 ml/min/1.73 sqM); Potassium 4.1 mmol/L (3.5-5.1); Sodium 135 mmol/L (137-145); Total Bilirubin 0.3 mg/dL (0.2-1.3); Total Protein 6.8 g/dL (6.3-8.2)
[2022-08-08] MEDS ORDERED: DICYCLOMINE 20 MG TAB PO STA (20:14)
[2022-08-08 20:17] LABS: C Reactive Protein 0.6 mg/dL (<1.0)
--- NOTE | 2022-08-08 20:48 | CT ---
EXAMINATION TYPE: CT abdomen pelvis w con DATE OF EXAM: 08/08/2022 COMPARISON: 01/06/2021 HISTORY: RLQ abd pain CT DLP: 3231.4 mGycm Automated exposure control for dose reduction was used. CONTRAST: Performed with IV Contrast, patient injected with 100ml mL of Isovue 300. Images obtained from the diaphragm to the floor the pelvis with IV contrast. Lung bases are clear. No pleural effusion. Heart size is normal. No pericardial effusion. Liver spleen stomach appear intact. The bile ducts are not dilated. Gallbladder appears normal. There is no adrenal mass. There is no evidence of pancreatic mass. Kidneys show satisfactory contrast opacification. No hydronephrosis. Ureters are not dilated. The lulu dder distends smoothly. No inguinal hernia. No free fluid in the pelvis. Appendix is posterior and appears normal there is no mesenteric edema. No ascites or free air. No sig n of a bowel obstruction. The lumbar vertebrae have normal alignment. No compression fracture. Administrative Support Specialist ior elements are intact. Facet joints are intact. Sacroiliac joints are intact. Bony pelvis is intact . The hip joints appear normal. IMPRESSION: Negative CT scan abdomen and pelvis. Normal appendix. No adverse change compared to old exam. No dila coco ducts. Contracted gallbladder.
[2022-08-08] MEDS ORDERED: SIMETHICONE 80 MG CHEWABLE PO ONE (21:06)
[2022-08-08] MEDS ORDERED: MAG HYDROX/AL HYDROX/SIMETH 30 ML, HYOSCYAMINE ELIXIR 10 ML PO STA ×2 (21:06)
[2022-08-08 22:01] VITALS: BP 102/81; PULSE 84
== END 2022-08-08 22:01 | disposition home or self-care (01) ==
LOC: EC 18:59
DX: R14.0 Abdominal distension (gaseous) (principal); R10.9 Unspecified abdominal pain; Z88.6 Allergy status to analgesic agent; Z88.8 Allergy status to other drugs, medicaments and biological substances
CPT/HCPCS: 36415; 80053; 82150; 83605; 83690; 85025; 86140; 81003; 74177; 99284; 96374; 96361; J1885; Q9967